=== PATIENT | male | born 1990 | race African-American/Black ===

== ENCOUNTER 2024-07-24 08:53 | Emergency (ER) | payer SELFPAY ==
[~2024-07-24] VITALS: Ht 188 cm; Wt 81.0 kg
[2024-07-24 09:03] VITALS: BP 136/108; PULSE 117; RESP 16; TEMP 36.9; O2SAT 100; O2SAT 98
[2024-07-24] MEDS ORDERED: LIDOCAINE 5% PATCH TOP SCH (09:45)
== END 2024-07-24 11:04 | disposition left against medical advice (07) ==
LOC: ER 08:53
DX: M54.9 Dorsalgia, unspecified (principal); M54.6 Pain in thoracic spine; Z88.6 Allergy status to analgesic agent
CPT/HCPCS: 99281